=== PATIENT | female | born 1995 | race Two or more races ===

== ENCOUNTER 2018-12-05 22:02 | Emergency (ER) | payer OTHER ==
[~2018-12-05] VITALS: Ht 165.1 cm; Wt 89.8 kg
[2018-12-05 22:05] VITALS: Ht 165.1 cm; Wt 89.8 kg
[2018-12-05 23:44] VITALS: BP 125/57
== END 2018-12-05 23:45 | disposition home or self-care (01) ==
LOC: ED 22:02
DX: L03.316 Cellulitis of umbilicus (principal)
CPT/HCPCS: 90715